=== PATIENT | female | born 1955 | race Caucasian/White ===

== ENCOUNTER 2018-03-19 14:00 | Emergency (ER) | payer OTHER, MEDICAID ==
[~2018-03-19] VITALS: Ht 167.6 cm; Wt 144.8 kg
[~2018-03-19 14:00] MED LIST: CITA20TA15 PO; DIVA500T47 PO; IBUP-974 PO
[2018-03-19 14:15] VITALS: BP 144/75
--- NOTE | 2018-03-19 14:43 | NUR ---
62Y/F BIB SELF C/O COUGH AND CONGESTION X 2 WEEKS; PT STATES SHE WENT TO SEE PMD 2 DAYS AGO AND WAS REFERRED TO ER FOR FURTHER EVALUATION OF PNA. AAOX4 WITH EVEN AND STEADY GAIT; PATIENT STATES PAIN OF 0/10 AT THIS TIME; VSS; PATIENT POSITIONED FOR COMFORT; HOB ELEVATED; BEDRAILS UP X 1; BED DOWN. ER MD MADE AWARE OF PT STATUS.
[2018-03-19 15:45] VITALS: BP 143/71
--- NOTE | 2018-03-19 15:45 | NUR ---
Patient discharged with v/s stable. Written and verbal after care instructions given and explained. Patient alert, oriented and verbalized understanding of instructions. Ambulatory with steady gait. All questions addressed prior to discharge. ID band removed. Patient advised to follow up with PMD. Rx of AUGMENTIN AND PROMETHAZINE DM given. Patient educated on indication of medication including possible reaction and side effects. Opportunity to ask questions provided and answered.
== END 2018-03-19 15:45 | disposition home or self-care (01) ==
LOC: MED 14:00
DX: J20.9 Acute bronchitis, unspecified (principal); J45.909 Unspecified asthma, uncomplicated; I10 Essential (primary) hypertension; Z90.49 Acquired absence of other specified parts of digestive tract; Z88.5 Allergy status to narcotic agent; Z91.013 Allergy to seafood; Z79.899 Other long term (current) drug therapy
CPT/HCPCS: 71046; 99284

== ENCOUNTER 2018-07-29 11:17 | Emergency (ER) | payer MEDICARE, MEDICAID ==
[~2018-07-29] VITALS: Ht 167.6 cm; Wt 106.6 kg
--- NOTE | 2018-07-29 11:20 | NUR ---
PATIENT AMBULATED TO BED 09 AT THIS TIME.
[2018-07-29 11:25] VITALS: BP 135/75
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
[2018-07-29] MEDS ORDERED: LIDOCAINE 1% 500 MG/50 ML VIAL INJ SCH (12:35)
--- NOTE | 2018-07-29 12:39 | NUR ---
notified med at bedside along w suture tray as requested
[2018-07-29 13:24] VITALS: BP 130/72
--- NOTE | 2018-07-29 13:25 | NUR ---
Patient discharged with v/s stable. Written and verbal after care instructions given and explained. Patient alert, oriented and verbalized understanding of instructions. Ambulatory with steady gait. All questions addressed prior to discharge. ID band removed. Patient advised to follow up with PMD. Rx of hydrocortison given. Patient educated on indication of medication including possible reaction and side effects. Opportunity to ask questions provided and answered.
== END 2018-07-29 13:25 | disposition home or self-care (01) ==
LOC: MED 11:17
DX: S50.02XA Contusion of left elbow, initial encounter (principal); T16.1XXA Foreign body in right ear, initial encounter; J45.909 Unspecified asthma, uncomplicated; I10 Essential (primary) hypertension; F31.9 Bipolar disorder, unspecified; F17.200 Nicotine dependence, unspecified, uncomplicated; Z90.49 Acquired absence of other specified parts of digestive tract; Z88.5 Allergy status to narcotic agent; Z91.013 Allergy to seafood; Z79.899 Other long term (current) drug therapy; Y04.2XXA Assault by strike against or bumped into by another person, initial encounter; Y93.89 Activity, other specified; Y92.89 Other specified places as the place of occurrence of the external cause; Y99.8 Other external cause status
CPT/HCPCS: 69200; 73080; 99284; J2001; Q0092; 10120